=== PATIENT | female | born 1945 | race Asian ===

== ENCOUNTER 2018-05-24 06:35 | Day surgery (SDC) | payer OTHER ==
[~2018-05-24] VITALS: Ht 152.4 cm; Wt 57.1 kg
[2018-05-24 07:22] VITALS: BP 135/71
[2018-05-24 09:51] VITALS: BP 137/89
== END 2018-05-24 09:45 | disposition home or self-care (01) ==
LOC: GI 06:35 → OR 07:30 → GI 09:45
PROVIDERS: Internal Medicine Gastroenterology
PROC: 0DJD8ZZ Inspection of Lower Intestinal Tract, Via Natural or Artificial Opening Endoscopic (ICD-10-PCS; principal; 2018-05-24 07:30)
DX: Z12.11 Encounter for screening for malignant neoplasm of colon (principal); Z86.010 Personal history of colon polyps; K57.30 Diverticulosis of large intestine without perforation or abscess without bleeding
CPT/HCPCS: 45378; J1200; J1610; J2250; J2310; J3010; J3490